=== PATIENT | male | born 1950 | race Two or more races ===

== ENCOUNTER → 2016-11-29 | Emergency (ER) | payer MEDICARE ==
[~2016-11-29] VITALS: Ht 172.7 cm; Wt 97.5 kg
[~2016-11-29] MED LIST: Albuterol ud Inhalation HHN ONE; Antibiotic; Azithromycin 500 MG in NS 275 ML IV ONE; Azithromycin Inj IV ONE; DuoNeb 0.5-3(2.5)mg/3ml neb HHN PRN; FUROSEMIDE40 MG ORAL; GABAPENTIN600 MG ORAL; Heparin 5000 units/ml inj SUBQ SCH; Ipratropium 0.02% Inh Soln 2.5ml UD HHN ONE; LANTUS SOL100 UNIT/1 SUBQ; LORazepam Inj 2mg/ml 1ml IV PRN; METFORMIN HCL1000 M1 ORAL; Morphine Sulfate 2mg/ml Inj IVP PRN; Morphine Sulfate 4mg/ml Inj IVP ONE; NS 275 ML ONE; Nitroglycerin Subl 0.4mg tab (Bottle Of 25) SL PRN; NovoLOG Insulin Flexpen SUBQ SCH; Promethazine/Codeine 5ml UD ORAL PRN; Solu-MEDROL 125mg Inj IV SCH; Solu-MEDROL 125mg Inj IVP ONE; Theophylline ER 100mg ORAL SCH; Tubing IV Cassette IV ONE; Vancomycin 1.5 GM in D5W 325 ML IVPB STA
--- NOTE | 2016-11-29 07:22 | Emergency Room Report ---
History of Present Illness General Chief Complaint: Dyspnea/Respdistress Source: Patient, EMS Present Illness HPI 66 YOM BIBEMS for SOB, progressive last few days, worse today waking up. Worse with ambulation. + smoker. Denies history of asthma/COPD/CHF. Not on home O2. On Lasix for "swelling of my legs" but denies history of fluid in lungs. Denies fever/chills, chest pain, URI symptoms, abd pain, urinary complaints. History of DM. Not on ASA/AC. Per EMS, O2 sat 98% on RA at home. Lungs were "clear", no meds given. Allergies: Coded Allergies: No Known Allergies (Unverified , 11/29/16) Patient History Past Medical History: DM Past Surgical History: none Pertinent Family History: none Social History: Reports: smoking Immunizations: UTD Reviewed Nursing Documentation: PMH: Agreed, PSxH: Agreed Nursing Documentation-PMH Hx Cardiac Problems: No Hx Hypertension: No Hx Pacemaker: No Hx Asthma: No Hx COPD: No Hx Diabetes: Yes Hx Cancer: No Hx Gastrointestinal Problems: No Hx Dialysis: No History Of Psychiatric Problem: No Hx Neurological Problems: No Hx Cerebrovascular Accident: No Hx Seizures: No Review of Systems All Other Systems: negative except mentioned in HPI Physical Exam Vital Signs Date Time Temp Pulse Resp B/P Pulse Ox O2 Delivery O2 Flow Rate FiO2 11/29/16 07:13 97.9 92 16 112/64 98 Nasal Cannula Sp02 EP Interpretation: reviewed, normal General Appearance: normal inspection, well appearing, no apparent distress, alert, GCS 15, non-toxic, obese Head: normocephalic, atraumatic Eyes: bilateral eye EOMI, bilateral eye PERRL ENT: normal ENT inspection, hearing grossly normal, normal pharynx, no angioedema, normal voice Neck: normal inspection, full range of motion, supple, thyroid normal, no meningismus, no bony tend Respiratory: normal inspection, no respiratory distress, no retraction, no accessory muscle use, wheezing, other - Insp and exp faint wheezing. No rhochin Cardiovascular #1: regular rate, rhythm, no edema Gastrointestinal: normal inspection, normal bowel sounds, non tender, soft, no guarding, no hernia Genitourinary: no CVA tenderness Musculoskeletal: normal inspection, back normal, normal range of motion, no calf tenderness, Melissa's Sign negative, other - bilateral lower extremities: from knees down, significant chronic venous stasis dermatitis: hairless, shiny legs with significant weeping and multiple areas of ulcerations, very tender to palpation. Neurologic: normal inspection, alert, oriented x3, responsive, line welder III-XII nml as tested, motor strength/tone normal, cerebellar normal, normal gait, speech normal Psychiatric: normal inspection, judgement/insight normal, mood/affect normal Skin: normal inspection, normal color, no rash Lymphatic: normal inspection Medical Decision Making Medicare Attestation I Montez Alvarado MD hereby attest that the medical record entry for date of service, 09/13/16 accurately reflects signatures/notations that I made in my capacity as MD when I treated/diagnosed the above listed Medicare beneficiary. I attest that this information is true, accurate and complete to the best of my knowledge. I understand that any falsification, omission, or concealment of material fact may subject me to administrative, civil, or criminal liability. This patient warrants hospital admission for extreme of age and has a condition that cannot be treated as outpatient. Diagnostic Impression: Primary Impression: Dyspnea Qualified Codes: R06.00 - Dyspnea, unspecified Additional Impressions: COPD exacerbation KAELA (acute kidney injury) Cellulitis and abscess of lower extremity ER Course 66 YO M smoker with progressive SOB. VSS. Afebrile. No SIRS or sepsis Also possible cellulitis of bilateral R>L lower extremities DDx includes COPD exacerbation, CHF, PNA, deconditioning PLAN Labs, duonebx 1, steroids, Azithro CXR Likely admission EKG Diagnostic Results Rate: tachycardiac, other - 1st degree AV block Rhythm Strip Diag. Results EP Interpretation: yes Rate: 103 Rhythm: NSR, no PVC's, no ectopy Chest X-Ray Diagnostic Results EP Interpretation: Yes Findings: no consolidation, no effusion, no pneumothorax, no acute cardiopulmonary disease Number of Views: 1 Reevaluation Time: 08:26 Last Vital Signs Date Time Temp Pulse Resp B/P Pulse Ox O2 Delivery O2 Flow Rate FiO2 11/29/16 07:13 97.9 92 16 112/64 98 Nasal Cannula Status: improved Reevaluation Impression labs: Mild leuks 12k. KAELA on labs (no history of CKD). Troponin 0. BNP WNL CXR: No PNA on CXR. No obvious pulm congestion. Hyper inflated ECG is NSR with 1st degree block. A: COPD exab. Improved with nebs, steroids. Never needed BIPAP Empiric Azithro provided Blood Cx pending Possible source of leuks is bilateral leg cellulitis. Will add vanc. Endorsed to Dr Chun for tele admission at 80am. Disposition: ADMITTED INPATIENT Condition: Serious MONTEZ ALVARADO M.D. Nov 29, 2016 07:22
[2016-11-29 07:58] LABS: BASOPHILS % (AUTO) 0.9 % (0.0-2.0); EOSINOPHILS % (AUTO) 2.1 % (0.0-3.0); LYMPHOCYTES % (AUTO) 7.7 % (20.0-45.0); MEAN CORPUSCULAR HEMOGLOBIN 30.2 PG (27.0-31.0); MEAN CORPUSCULAR HGB CONC 34.2 G/DL (32.0-36.0); MEAN CORPUSCULAR VOLUME 88 FL (80-99); MEAN PLATELET VOLUME 6.5 FL (6.5-10.1); MONOCYTES % (AUTO) 9.8 % (1.0-10.0); NEUTROPHILS % (AUTO) 79.4 % (45.0-75.0); PLATELET COUNT 401 K/UL (150-450); RED CELL DISTRIBUTION WIDTH 12.4 % (11.6-14.8); WHITE BLOOD COUNT 12.8 K/UL (4.8-10.8)
[2016-11-29 08:09] LABS: CALCIUM 9.8 mg/dL (8.6-10.2); CREATININE 2.7 mg/dL (0.7-1.2); GLOMERULAR FILTRATION RATE 23.6 mL/min (>60); INR 0.9 (0.9-1.1); POTASSIUM 3.5 mEQ/L (3.4-4.9); PROTHROMBIN TIME 9.5 SEC (9.30-11.50); TOTAL PROTEIN 7.2 g/dL (6.6-8.7); TROPONIN I < 0.30 ng/mL (<=0.30)
[2016-11-29 08:19] LABS: CKMB 3.5 ng/mL (< 6.7)
[2016-11-29 08:59] VITALS: BP 124/82
[2016-11-29 09:01] VITALS: BP 124/56
--- NOTE | 2016-11-29 09:57 | Cardiology Report ---
APPROVED REPORT EKG Measurement Heart [id number] Sinus tachycardia with 1st degree AV block Otherwise normal ECG
[2016-11-29 10:00] VITALS: BP 109/72
--- NOTE | 2016-11-29 10:45 | Diagnostic Imaging Report ---
Indication: Dyspnea Comparison: None A single view chest radiograph was obtained. Findings: Bones are osteopenic. Lungs are clear. Cardiac mediastinal silhouette is normal. Impression: No acute disease
[2016-11-29 12:00] VITALS: BP 95/69
[2016-11-29 12:34] VITALS: BP 95/69
--- NOTE | 2016-11-30 14:40 | Discharge Summary ---
Discharge Summary Hospital Course Date of Admission Nov 29, 2016 at 07:35 Date of Discharge Nov 29, 2016 at 12:45 Admitting Diagnosis DYSPNEA HPI Jerry Drake is a 66 year old male who was admitted on Nov 29, 2016 at 07: 35 for Dyspnea Hospital Course dc summary dictated # [id number] Discharge Discharge Disposition Patient signed AMA Discharge Diagnoses: Discharge Instructions Discharge Instructions Special Instructions I have been assigned to complete a D/C Summary on this account. I was not involved in the patient management Katalina Cyr NP ([facility]anchtein) Nov 30, 2016 14:40
--- NOTE | 2016-12-01 05:18 | Discharge Summary 2 SIG ---
DATE OF ADMISSION: 11/29/2016 DATE OF SIGNING AGAINST MEDICAL ADVICE: 11/29/2016 REASON FOR ADMISSION: 66-year-old male came to the emergency room complaining of shortness of breath , which was progressively getting worse for the last few days. The shortness of breath was worse with ambulation. The patient admitted to current smoking. The patient has a history of chronic obstructive pulmonary disease. Not using oxygen at home. He was getting Lasix at home for swelling in his legs. He denied history of fluid in his lungs. He denied fever or chills. He denied chest pain, upper respiratory infection symptoms, abdominal pain, or urinary complaints. The patient has a history of diabetes. The patient was not on any anticoagulation. Workup in the emergency department revealed mild leukocytosis of 12, acute kidney injury o with BUN of 106 and creatinine of 2.7. Troponin was negative. ProBNP was 541. Chest x-ray revealed no pneumonia. No obvious pulmonary congestion, but evidence of hyperinflation of the lungs consistent with chronic obstructive pulmonary disease. EKG showed sinus tachycardia with a first-degree AV block. The patient was afebrile. No evidence of sepsis or SIRS. Clinical exam revealed cellulitis of bilateral lower extremities, right more than left. In the emergency room, blood cultures were drawn. The patient was started on empiric antibiotics. First dose of the steroids was given as well. One dose of DuoNeb via nebulizing treatment was given. The patient improved with nebulizing trastment and steroids. The patient will be admitted to telemetry floor. ADMITTING DIAGNOSES: 1. Dyspnea. 2. Chronic obstructive pulmonary disease exacerbation. 3. Current smoker. 4. Acute kidney injury. 5. Cellulitis of bilateral lower extremities. HOSPITAL STAY: The patient came to the telemetry floor with his and stated that he did not want to stay there, he wanted to go home. Nursing staff paged Dr. Chun. The patient did not want to wait for a call back from the physician . Risks and consequences of signing against medical advice were discussed with the patient by the nursing staff. The patient nevertheless insisted on signing AMA.He signed the AMA form and left. FINAL DIAGNOSES: 1. Dyspnea. 2. Acute chronic obstructive pulmonary disease exacerbation. 3. Active smoker. 4. Acute kidney injury. 5. Cellulitis of bilateral lower extremities. Rodriguez Chun M.D. I have been assigned to dictate discharge summary on this account and I was not involved in the patient's management. Katalina Cyr (Vanchtein) NErrol DR: CHICO JOB#: [id number] CC: PHILLIP
== END | disposition left against medical advice (07) ==
LOC: EDBD 07:22 → EMR 07:29 → 2E 07:35 → UNDOADMIN 07:35 → EDBEDREQ 07:41 → EDBEDREQSVC 10:57 → EDBEDREQ 11:46 → EMR 12:36 → UNDODISIN 12:45
DX: J44.1 Chronic obstructive pulmonary disease with (acute) exacerbation (principal); N17.9 Acute kidney failure, unspecified; L03.116 Cellulitis of left lower limb; L03.115 Cellulitis of right lower limb; F17.200 Nicotine dependence, unspecified, uncomplicated; E11.9 Type 2 diabetes mellitus without complications; R00.0 Tachycardia, unspecified; I44.0 Atrioventricular block, first degree
CPT/HCPCS: 36415; 71010; 80053; 82550; 82553; 82962; 83880; 84484; 85025; 85610; 93005; 94640; 94664; 99285; J0456; J1815; J2270; J2930; J3370; J7050